=== PATIENT | male | born 1970 | race Hispanic/Latino ===

== ENCOUNTER 2018-08-22 10:45 | Emergency (ER) | payer OTHER ==
[2018-08-22] MEDS ORDERED: Lidocaine 1% PF 5 ML VIAL ONE (10:56)
[2018-08-22] MEDS ORDERED: Bacitracin 1 PK ONE (10:58)
== END 2018-08-22 11:27 | disposition home or self-care (01) ==
LOC: SCSER 10:45
DX: S61.210A Laceration without foreign body of right index finger without damage to nail, initial encounter (principal); S61.214A Laceration without foreign body of right ring finger without damage to nail, initial encounter; I10 Essential (primary) hypertension; W26.0XXA Contact with knife, initial encounter
CPT/HCPCS: 12002; J2001